=== PATIENT | male | born 1955 | race Caucasian/White ===

== ENCOUNTER 2017-01-05 06:57 | Outpatient (CLI) | payer MEDICAID ==
[~2017-01-05] VITALS: Ht 185.4 cm; Wt 109.1 kg
--- NOTE | ~2017-01-05 | HEMODYNAMI ---
PATIENT:JENNIFER PEREZ MEDICAL RECORD: [id number] : 51 LOCATION:D[facility] ADMISSION DATE: 01/05/17 Generatedon:01/05/201711:14 Patient name: JENNIFER PEREZ Patient #: [id number] SSN: : 1955 Date of study: 01/05/2017 Page: Of Hemodynamic Procedure Report Patient Data Patient Demographics Procedure consent was obtained First Name: JENNIFER Gender: Male Last Name: CHRIS : 1955 Middle Initial: R Age: 61 year(s) Patient #: [id number] Race: Unknown Additional ID: [id number] Contact details Address: [address] [place] [address] State: [place] City: [place] Zip code: [address] Admission Admission Data Admission Date: 01/05/2017 Admission Time: 6:57 Procedure Procedure Types Cath Procedure Peripheral Cath Diagnostic Procedure Miscellaneous Procedure Description Procedure Date Procedure Date: 01/05/2017 Procedure Start Time: 10:35 Procedure Staff Name Function Andrei Mcgee MD Performing Physician Dale Deleon RT Monitor Ani Crandall RT Scrub Kenneth Allen RN Nurse Hemodynamics Rest Heart Rate: 86 (bpm) Snapshots Pre Cath Intra NCS Post Cath Vital Signs Time Heart Resp SPO2 etCO2 NIBP (mmHg) Rhythm Pain Sedation Rate (ipm) (%) (mmHg) Status Level (bpm) 10:28:39 87 12 96 0 154/105(138) NSR 0 (11) 10(A) , No pain 10:33:38 84 25 97 0 Auto NIBP NSR 0 (11) 10(A) off , No pain 10:38:37 90 17 88 0 Auto NIBP NSR 0 (11) 10(A) off , No pain 10:43:37 79 99 0 Auto NIBP NSR 0 (11) 10(A) off , No pain 10:48:36 94 24 96 0 Auto NIBP NSR 0 (11) 10(A) off , No pain 10:49:41 80 14 98 0 146/109(131) NSR 0 (11) 10(A) , No pain 10:54:38 84 17 96 0 140/94(105) NSR 0 (11) 10(A) , No pain 10:59:37 86 23 95 0 Auto NIBP NSR 0 (11) 10(A) off , No pain 11:04:36 78 18 98 0 Auto NIBP NSR 0 (11) 10(A) off , No pain 11:09:35 81 27 97 0 Auto NIBP NSR 0 (11) 10(A) off , No pain Procedure Log Time Note 10:19:07 Ani Crandall RT(R) sent for patient. Start room use. 10:19:16 Time tracking: Regular hours 10:19:24 Plan of Care:Hemodynamics will remain stable., Cardiac rhythm will remain stable., Comfort level will be maintained., Respiratory function will remain adequate., Patient/ family verbilizes understanding of procedure., Procedure tolerated without complication., Recovers from procedure without complications.. 10:19:29 Patient arrived from Outpatients to IR. Patient remains on bed/stretche r for procedure. 10:19:33 Correct patient and procedure confirmed by team. 10:19:35 Signed procedure consent form obtained from patient. 10:19:37 ECG and BP/O2 sat monitors applied to patient. 10:19:38 Full Disclosure recording started 10:19:38 - 10:19:43 H&P Date Dictated: 01/05/2017 Within 30 days and on chart., H&P Addendu m completed by physician on day of procedure. (MUST COMPLETE FOR ALL OUTPATIENTS). 10:19:44 Pre-procedure instructions explained to patient. 10:19:45 Pre-op teaching completed and patient verbalized understanding. 10:19:48 Family in waiting room. 10:19:50 Patient NPO since Midnight. 10:20:48 Is the patient allergic to Iodine/contrast media? No. 10:20:50 Is patient on blood thinner?No 10:20:52 Patient diabetic? No. 10:20:53 - 10:20:54 ----Pre-sedation anethsthesia assessment.---- 10:20:58 Previous problem with sedation/anesthesia? No ? 10:21:01 Snore? Yes 10:21:02 Sleep apnea? Yes 10:21:04 Deviated septum? No 10:21:05 Opens mouth fully? Yes 10:21:08 Sticks out tongue? Yes 10:21:10 Airway obstruction? Yes ? 10:21:13 Dentures? No ? 10:21:23 IV patent on arrival in right forearm with 0.9% NaCl at [facility]. 10:21:29 Patient pain scale 0/10 no pain\. 10:27:27 Vital chart was started 10:34:01 Right abdomen area was prepped with chlora-prep and draped in sterile fashion 10:34:03 Alarms reviewed by R. N. 10:34:03 Sharps counted by scrub and verified by R.N. 10:34:06 Physician arrived 10:34:07 --------ALL STOP TIME OUT------ 10:34:08 Final Timeout: patient, procedure, and site verified with staff and physician. All members of the team are in agreement. 10:34:11 Right abdomen site verified by team. 10:34:18 Sedation plan: Local Anesthetic Medication:Lidocaine 10:34:46 Baseline sample Acquired. 10:35:03 Procedure started. 10:35:07 Local anesthetic to Abdominal area with Lidocaine 1% by Andrei Mcgee MD.INITIAL ACCESS ONLY 10:35:09 [id number] 8FR CATH DRAIN TRAY opened to sterile field. 10:38:42 CONNECTING TUBE FOR DRAINAGE BAG opened to sterile field. 11:09:59 8.5 liters drained 11:10:12 Dermabond Pen opened to sterile field. 11:10:17 Procedure ended.(Physican Out) 11:10:26 Sharps counted by scrub and verified by R.N. 11:10:27 Insertion/operative site no bleeding no hematoma. 11:10:33 Post-op/insertion site Right Abdominal area dressed using a 4 x 4 and Tegaderm. 11:10:39 Post Abdominal area:stable 11:10:41 Post Procedure Pulses reassessed and unchanged 11:10:44 Post procedure instruction explained to patient.Patient verbalizes understanding. 11:10:57 Procedure and supply charges have been captured, reviewed, submitted an d are correct. 11:13:30 Report given to Outpatients. 11:13:35 Patient transfered to Outpatients with Stretcher. 11:14:00 Vital chart was stopped Device Usage Item Name Manufacture Quantity Catalog Hospital Part Current Mini mal Lot# / Number Charge Number Stock Stock Serial# Code [id number] CareFusion 1 [id number] 8FR CATH DRAIN TRAY CONNECTING TUBE [place] 1 [id number] 5 FOR DRAINAGE Scientific BAG Dermabond Pen Ethicon 1 [id number] Signature Audit [place] Stage Time Signature Unsigned Intra-Procedure 01/05/2017 Dale 11:13:57 AM Adrienne RT (R) (CV) Signatures Monitor : Dale Signature : Adrienne RT Date : Time : [address] [address]
[2017-01-05] MEDS ORDERED: ELIQUIS5 MG PO (07:52)
[2017-01-05] MEDS ORDERED: LISINOPRIL5 MG PO (07:53)
[2017-01-05] MEDS ORDERED: COREG6.25 MG PO (07:54)
[2017-01-05 08:03] VITALS: BP 153/92; Ht 185.4 cm; Wt 109.1 kg
[2017-01-05 08:14] LABS: ANION GAP 15.3 mmol/L (8-16); APTT 30.4 SECONDS (22.8-39.4); CALCIUM 8.6 mg/dL (8.5-10.1); CARBON DIOXIDE 22.9 mmol/L (21.0-32.0); CREATININE - SERUM 1.4 mg/dL (0.6-1.3); INR 1.31 (0.85-1.17); POTASSIUM - SERUM 4.2 mmol/L (3.5-5.1); PROTIME 16.1 SECONDS (11.6-15.0)
[2017-01-05 08:37] LABS: BASOPHILS 0.5 % (0-2); HEMATOCRIT 31.3 % (42.0-54.0); HEMOGLOBIN 9.9 g/dL (13.5-17.5); IMMATURE GRANULOCYTES 0.2 % (0-5); LYMPHOCYTES 19.4 % (15-50); MCH 34.6 pg (26.0-34.0); MCHC 31.6 g/dL (31.0-37.0); MCV 109.4 fL (80.0-100.0); MONOCYTES 3.9 % (2-11); PLATELET COUNT 127 10x3/uL (130-400); RBC 2.86 10x6/uL (4.20-6.10); RDW 19.6 % (11.5-14.5); WBC 4.4 10x3/uL (4.8-10.8)
== END 2017-01-05 12:00 | disposition home or self-care (01) ==
LOC: D.OPS 06:57 → D.SP 11:00 → D.OPS 11:00
PROVIDERS: General Practice
DX: R18.8 Other ascites (principal); D46.22 Refractory anemia with excess of blasts 2; D47.4 Osteomyelofibrosis; D61.818 Other pancytopenia; Z01.812 Encounter for preprocedural laboratory examination

== ENCOUNTER 2017-06-22 06:55 | Outpatient (CLI) | payer MEDICAID ==
[~2017-06-22] VITALS: Ht 185.4 cm; Wt 105.0 kg
[~2017-06-22 06:55] MED LIST: COREG6.25 MG PO; ELIQUIS5 MG PO; LISINOPRIL5 MG PO
[2017-06-22 08:30] LABS: BASOPHILS 1.7 % (0-2); EOSINOPHILS 1.4 % (0-7); HEMATOCRIT 33.2 % (42.0-54.0); HEMOGLOBIN 10.8 g/dL (13.5-17.5); IMMATURE GRANULOCYTES 0.2 % (0-5); MCH 31.5 pg (26.0-34.0); MCHC 32.5 g/dL (31.0-37.0); MCV 96.8 fL (80.0-100.0); MEAN PLATELET VOLUME 10.8 fL (7.4-10.4); MONOCYTES 4.4 % (2-11); NEUTROPHILS 81.3 % (40-80); PLATELET COUNT 225 10x3/uL (130-400); RBC 3.43 10x6/uL (4.20-6.10); RDW 18.4 % (11.5-14.5); WBC 5.7 10x3/uL (4.8-10.8)
[2017-06-22 08:38] LABS: APTT 32.7 SECONDS (22.8-39.4); INR 1.38 (0.85-1.17); PROTIME 16.5 SECONDS (11.6-15.0)
[2017-06-22 08:41] LABS: ANION GAP 12.2 mmol/L (8-16); CALCIUM 8.6 mg/dL (8.5-10.1); CARBON DIOXIDE 27.5 mmol/L (21.0-32.0); CREATININE - SERUM 1.8 mg/dL (0.6-1.3); POTASSIUM - SERUM 3.7 mmol/L (3.5-5.1)
[2017-06-22] MEDS ORDERED: BAYER CHEWABLE81 MG PO (09:08)
[2017-06-22] MEDS ORDERED: BRILINTA90 MG PO (09:09)
[2017-06-22] MEDS ORDERED: METOLAZONE5 MG PO (09:10)
[2017-06-22] MEDS ORDERED: ZOLOFT100 MG PO (09:10)
[2017-06-22] MEDS ORDERED: NORVASC5 MG PO (09:11)
[2017-06-22] MEDS ORDERED: PACERONE200 MG PO (09:11)
[2017-06-22] MEDS ORDERED: LIPITOR80 MG (09:11)
[2017-06-22] MEDS ORDERED: FLOMAX0.4 MG PO (09:12)
[2017-06-22 09:18] VITALS: BP 132/80; Ht 185.4 cm; Wt 105.0 kg
== END 2017-06-22 16:00 | disposition home or self-care (01) ==
LOC: D.SP 06:55
PROVIDERS: Radiology Diagnostic Radiology
DX: R18.8 Other ascites (principal); I50.9 Heart failure, unspecified; Z01.812 Encounter for preprocedural laboratory examination

== ENCOUNTER 2017-07-27 08:39 | Outpatient (CLI) | payer MEDICAID ==
[~2017-07-27] VITALS: Ht 185.4 cm; Wt 95.5 kg
[~2017-07-27 08:39] MED LIST changes: +BAYER CHEWABLE81 MG PO; +BRILINTA90 MG PO; +FLOMAX0.4 MG PO; +LIPITOR80 MG; +METOLAZONE5 MG PO; +NORVASC5 MG PO; +PACERONE200 MG PO; +ZOLOFT100 MG PO
[2017-07-27 09:08] LABS: BASOPHILS 0 % (0-2); EOSINOPHILS 0 % (0-7); HEMATOCRIT 38.4 % (42.0-54.0); HEMOGLOBIN 12.1 g/dL (13.5-17.5); IMMATURE GRANULOCYTES 0.3 % (0-5); LYMPHOCYTES 3.5 % (15-50); MCH 31.4 pg (26.0-34.0); MCHC 31.5 g/dL (31.0-37.0); MCV 99.7 fL (80.0-100.0); MEAN PLATELET VOLUME 10.3 fL (7.4-10.4); MONOCYTES 3.7 % (2-11); NEUTROPHILS 92.5 % (40-80); RBC 3.85 10x6/uL (4.20-6.10); RDW 19.2 % (11.5-14.5); WBC 13.4 10x3/uL (4.8-10.8)
[2017-07-27 09:09] LABS: PLATELET COUNT 165 10x3/uL (130-400)
[2017-07-27 09:21] LABS: INR 1.13 (0.85-1.17); PROTIME 14.1 SECONDS (11.6-15.0)
[2017-07-27 09:23] LABS: ANION GAP 8.9 mmol/L (8-16); CALCIUM 9.4 mg/dL (8.5-10.1); CARBON DIOXIDE 32.8 mmol/L (21.0-32.0); CREATININE - SERUM 1.6 mg/dL (0.6-1.3); POTASSIUM - SERUM 3.7 mmol/L (3.5-5.1)
[2017-07-27 09:36] VITALS: BP 129/92; Ht 185.4 cm; Wt 95.5 kg
== END 2017-07-27 16:00 | disposition home or self-care (01) ==
LOC: D.SP 08:39 → D.CT 11:00 → D.SP 16:00
PROVIDERS: General Practice
DX: R18.8 Other ascites (principal); I10 Essential (primary) hypertension; D46.22 Refractory anemia with excess of blasts 2; I50.9 Heart failure, unspecified; Z01.812 Encounter for preprocedural laboratory examination